=== PATIENT | male | born 1960 | race Caucasian/White ===

== ENCOUNTER → 2020-09-22 14:07 | Outpatient (BNVA) | payer OTHER, SELFPAY | PROVIDERS: PCP Family Medicine; Visit Provider Internal Medicine | DX: M79.89 Other specified soft tissue disorders (principal); M25.50 Pain in unspecified joint; Z79.899 Other long term (current) drug therapy; Z11.59 Encounter for screening for other viral diseases; R63.4 Abnormal weight loss; Z68.1 Body mass index [BMI] 19.9 or less, adult; D50.9 Iron deficiency anemia, unspecified; F17.210 Nicotine dependence, cigarettes, uncomplicated | CPT/HCPCS: 99204 ==

== ENCOUNTER 2020-09-22 15:44 | Outpatient (CLI) | payer OTHER, SELFPAY ==
--- NOTE | 2020-09-22 15:58 | XR_ITS ---
WS: [id number] Exam: XR sacroiliac jts m 3V [id number] Date/Time of Exam: 09/22/2020 4:07 PM Reason For Exam: L40.9 - Psoriasis, unspecified No fracture or dislocation. Mild to moderate degenerative change of both SI joints. No sign of bone d estruction. The SI joints remain open. Operative fusion of the spine with hardware from L4 to S1. XR/XR sacroiliac jts m 3V [id number] IMPRESSION: 1. 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 No fracture or other significant finding. 2. Spinal fusion from L4 to S1 as noted above.
--- NOTE | 2020-09-22 15:58 | XR_ITS ---
WS: [id number] Exam: XR hand RT 2V [id number] Date/Time of Exam: 09/22/2020 4:07 PM Reason For Exam: M79.89 - Other specified soft tissue disorders No fracture or dislocation. Degenerative narrowing of the MP joints and IP joints. Multiple areas of bony erosion involving the phalanges and metacarpals. There is also periarticular demineralization of bone. Soft tissues are unremarkable. Additional subcortical cystic areas noted in the carpal bones. XR/XR hand RT 2V [id number] IMPRESSION: 1. Degenerative narrowing of the IP and MP joints with multiple areas of bony e rosion involving the metacarpals and phalanges as well as demineralization of b one at the IP joints and MP joints. Considerations would include rheumatoid art hritis or psoriatic arthritis. Gouty arthritis unlikely. 2. No acute bony injury.
--- NOTE | 2020-09-22 15:58 | XR_ITS ---
WS: [id number] Exam: XR hand LT 2V [id number] Date/Time of Exam: 09/22/2020 4:07 PM Reason For Exam: M79.89 - Other specified soft tissue disorders Exam: XR hand LT 2V [id number] Date/Time of Exam: 09/22/2020 4:07 PM Reason For Exam: M79.89 - Other specified soft tissue disorders No fracture or dislocation noted. Mild degenerative changes noted in the IP joints and MP joints. Sev eral small subcortical cysts and areas of the bony erosion are noted in the phalanges however not as pronounced as noted involving the right hand. Normal soft tissues. XR/XR hand LT 2V [id number] IMPRESSION: 1. Mild degenerative changes with several tiny subcortical cysts and areas of b shelly erosion in the phalanges. These changes are not as pronounced as identified within the right hand. 2. No acute bony injury noted.
--- NOTE | 2020-09-22 15:58 | XR_ITS ---
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 The lungs are hyperinflated and clear. Normal cardiomediastinal structures and bony elements. No pleu ral effusions. Mild bilateral apical pleural thickening. XR/XR chest 2V* [id number] IMPRESSION: 1. Pulmonary hyperinflation. No acute process.
[2020-09-22 17:04] LABS: Basophils # 0.1 10^3/uL (0.0-0.1); Basophils % 0.7 %; Eosinophils # 0.1 10^3/uL (0.0-0.8); Eosinophils % 0.6 %; Hematocrit 57.7 % (42.0-52.0); Hemoglobin 19.1 g/dL (11.7-16.6); Lymphocytes # 2.8 10^3/uL (0.8-4.8); Lymphocytes % 32.2 %; Mean Corpuscular HGB Conc 33.1 g/dL (30.0-36.0); Mean Corpuscular Hemoglobin 30.8 pg (28.0-34.0); Mean Corpuscular Volume 93.1 fL (80-94); Mean Platelet Volume 9.6 fL (7.4-10.4); Monocytes # 0.6 10^3/uL (0.2-0.9); Monocytes % 7.3 %; Neutrophils # 5.17 10^3/uL (1.8-7.7); Neutrophils % 58.9 %; Nucleated Red Blood Cells % 0 %; Platelet Count 325 10^3/cmm (130-400); Red Cell Distribution Width 13.8 % (12.1-15.1); White Blood Count 8.8 10^3/uL (4.0-10.0)
[2020-09-22 17:47] LABS: Alanine Aminotransferase 10 U/L (0-41); Albumin Level 3.9 g/dL (3.5-5.2); Alkaline Phosphatase 75 IU/L (40-130); Aspartate Amino Transferase 12 U/L (0-40); Blood Urea Nitrogen 4 mg/dL (6-20); C Reactive Protein 2.5 mg/L (0.0-4.9); Calcium 9.6 mg/dL (8.5-10.5); Carbon Dioxide 31 mmol/L (22-29); Chloride 100 mmol/L (98-107); Creatine Phosphokinase 41 U/L (39-308); Globulin 2.9 g/dL (1.3-4.6); Glomerular Filtration Rate 115.4 mL/min (90-130); Glucose 96 mg/dL (65-115); Hepatitis B Core AB, Total Non-Reactive (Nonreactive); Hepatitis B Surface Antigen Non-Reactive (Nonreactive); Hepatitis C Virus Antibody Non-Reactive (Nonreactive); Magnesium 2.2 mg/dL (1.7-2.3); Osmolality Calculated 285 mOsm/kg (285-295); Phosphorus 3.4 mg/dL (2.5-4.5); Sodium 139 mmol/L (136-145); Total Bilirubin 0.4 mg/dL (0.15-1.2); Total Protein 6.8 g/dL (6.6-8.7)
[2020-09-22 17:55] LABS: Erythrocyte Sedimentation Rate 2 mm/hr (0-10)
[2020-09-22 18:38] LABS: 25 Hydroxy Vitamin D 14 ng/mL (30-100); Ferritin 277 ng/mL (30-400); Iron 90 ug/dL (59-158); Thyroid Stimulating Hormone 0.99 uIU/mL (0.27-4.20)
[2020-09-26 11:57] LABS: Cyclic Citrullinated Peptide <16 UNITS
[2020-09-26 14:33] LABS: COMPLEMENT COMPONENT C3C 107 mg/dL (82-185); COMPLEMENT COMPONENT C4C 48 mg/dL (15-53)
[2020-09-26 15:03] LABS: COMPLEMENT, TOTAL (CH50) 48 U/mL (31-60)
[2020-09-27 13:58] LABS: CENTROMERE B ANTIBODY <1.0 NEG AI (<1.0 NEG); JO-1 ANTIBODY <1.0 NEG AI (<1.0 NEG); RNP ANTIBODY <1.0 NEG AI (<1.0 NEG); SCL-70 ANTIBODY <1.0 NEG AI (<1.0 NEG); SJOGREN'S ANTIBODY (SS-A) <1.0 NEG AI (<1.0 NEG); SM ANTIBODY <1.0 NEG AI (<1.0 NEG); SS-B <1.0 NEG AI (<1.0 NEG)
[2020-09-27 14:28] LABS: ANA SCREEN, IFA NEGATIVE (NEGATIVE)
[2020-09-27 15:03] LABS: THYROID PEROXIDASE ANTIBODIES 1 IU/mL (<9)
[2020-09-28 17:39] LABS: HLA-B27 NEGATIVE (NEGATIVE)
[2020-09-29 01:14] LABS: DNA AB (DS) CRITHIDIA,IFA NEGATIVE (NEGATIVE)
== END 2020-09-22 15:45 | disposition home or self-care (01) ==
PROVIDERS: PCP Family Medicine; Visit Provider Internal Medicine
DX: Z51.81 Encounter for therapeutic drug level monitoring (principal); Z79.899 Other long term (current) drug therapy; M79.89 Other specified soft tissue disorders; L40.9 Psoriasis, unspecified; D86.9 Sarcoidosis, unspecified; D50.9 Iron deficiency anemia, unspecified; M45.9 Ankylosing spondylitis of unspecified sites in spine; C61 Malignant neoplasm of prostate; M46.1 Sacroiliitis, not elsewhere classified; M43.27 Fusion of spine, lumbosacral region
CPT/HCPCS: 36415; 71046; 72202; 73120; 80053; 82306; 82550; 82728; 83540; 83735; 84100; 84153; 84443; 85025; 85651; 86140; 86431; 86704; 86803; 86812; 87340

== ENCOUNTER → 2020-11-01 16:28 | Outpatient (BNVA) | payer OTHER, SELFPAY | PROVIDERS: PCP Family Medicine; Visit Provider Internal Medicine | DX: Z01.812 Encounter for preprocedural laboratory examination (principal); Z12.11 Encounter for screening for malignant neoplasm of colon; Z20.822 Contact with and (suspected) exposure to COVID-19 | CPT/HCPCS: 87635 ==

== ENCOUNTER 2020-11-07 07:47 | Day surgery (SDC) | payer OTHER, SELFPAY ==
[2020-11-03 13:07] VITALS: BMI 17.2
--- NOTE | 2020-11-07 08:13 | ANES.PREANE2 ---
Pre-Anesthetic Assessment Pre-Anesthetic Assessment: Height/Weight: Height 1.75 m Weight 53.07 kg Preop Diagnosis: t Proposed Procedure: Operation Date: 11/07/20 09:15 Proposed Procedures p Colonoscopy 30045 z12.11(Not Applicable) - Carlos Mata MD Was Beta Angelika taken within 24 hours: N/A Was Clonidine taken within 24 hours: N/A Social: Social History: Alcohol (Daily beer) and Tobacco Exam: Pre-Anes Outpt Exam: alert, oriented x 3 and regular rate & rhythm Airway: Submandibular: WNL Cervical ROM: WNL MP: 2 Dentition: False Pulmonary: Pulmonary: COPD Musc/skel: Musc/skel: RA Anesthetic Plan: ASA status: 3 Anesthesia: MAC Risk of > 500 ml blood loss (7ml/kg in children): No PFSH Anesthesia PFSH: Social History Smoking and tobacco status: current every day smoker cigarettes Alcohol intake: current Alcohol intake frequency: few times a week Alcohol type: beer History of recent travel: No Data Anesthesia Cardiac Studies: No Data to Display
[2020-11-07 08:25] VITALS: BP 90/67; PULSE 84; RESP 16; TEMP 37.1; O2SAT 94
--- NOTE | 2020-11-07 08:41 | W.PM.OPSUD ---
Surgery/Procedure H&P Update DATE OF PROCEDURE: November 07, 2020 DATE H&P PERFORMED: 11/01/20 PREOP DIAGNOSIS: t PLANNED PROCEDURE: Operation Date: 11/07/20 09:15 Proposed Procedures p Colonoscopy 37003 z12.11(Not Applicable) - Carlos Mata MD
[2020-11-07] MEDS: sodium chloride 0.9% 1,000 ML 30 ML IV (08:44)
[2020-11-07 09:34] VITALS: BP 90/59; PULSE 75; RESP 10; TEMP 36.5; O2SAT 96
[2020-11-07 09:51] VITALS: BP 102/65; PULSE 77; RESP 12; O2SAT 100
--- NOTE | 2020-11-07 10:09 | ANE.PACU2 ---
Inpatient post-anesthesia follow up: Airway intact: Yes Vital signs: Temperature 97.7 F Pulse Rate 77 Respiratory Rate 12 Blood Pressure 102/65 Pulse Oximetry 100 Oxygen Delivery Me thod Room Air Oxygen Flow Rate Fraction of Inspir ed Oxygen Hydration adequate: Yes Nausea and vomiting: No Mental status: Baseline
--- NOTE | 2020-11-07 12:03 | ANE.PACU2 ---
Inpatient post-anesthesia follow up: Airway intact: Yes Vital signs: Temperature 97.7 F Pulse Rate 77 Respiratory Rate 12 Blood Pressure 102/65 Pulse Oximetry 100 Oxygen Delivery Me thod Room Air Oxygen Flow Rate Fraction of Inspir ed Oxygen Hydration adequate: Yes Nausea and vomiting: No Pain level: 1 Mental status: Baseline
== END 2020-11-07 10:10 | disposition home or self-care (01) ==
PROVIDERS: PCP Family Medicine; Visit Provider Internal Medicine
PROC: 0DJD8ZZ Inspection of Lower Intestinal Tract, Via Natural or Artificial Opening Endoscopic (ICD-10-PCS; CPT 45378; principal; 2020-11-07 09:15)
DX: Z12.11 Encounter for screening for malignant neoplasm of colon (principal); J44.9 Chronic obstructive pulmonary disease, unspecified; M06.9 Rheumatoid arthritis, unspecified; F17.210 Nicotine dependence, cigarettes, uncomplicated
CPT/HCPCS: 45378; 96360; J7030

== ENCOUNTER 2020-12-23 14:42 | Outpatient (CLI) | payer OTHER, SELFPAY ==
--- NOTE | 2020-12-23 15:00 | US_ITS ---
WS: [id number] ULTRASOUND SOFT TISSUES RIGHT hand. HISTORY: M67.49 - Ganglion, multiple sites COMPARISON: None available. TECHNIQUE: 2-D and color Doppler imaging is submitted. Small hypoechoic nodule at the base of the first finger measures 8 x 4 x 4 mm. Could potentially be a tiny ganglion. There is nothing specific about this nodule. There are no nodules identified at any o ther locations. US/US soft tissue/extremity 23048 IMPRESSION: No definite ganglion. Consider further evaluation by MRI.
== END 2020-12-23 14:43 | disposition home or self-care (01) ==
PROVIDERS: PCP Family Medicine; Visit Provider Internal Medicine
DX: M67.49 Ganglion, multiple sites (principal); M79.89 Other specified soft tissue disorders
CPT/HCPCS: 76882

== ENCOUNTER 2021-01-18 06:00 | Outpatient (RCR) | payer OTHER, SELFPAY | END 2021-01-23 23:59 | disposition home or self-care (01) | LOC: GOT 06:00 | PROVIDERS: PCP Family Medicine; Referring Provider Physical Medicine & Rehabilitation; Visit Provider Physical Medicine & Rehabilitation | DX: M79.641 Pain in right hand (principal); R20.0 Anesthesia of skin; M25.641 Stiffness of right hand, not elsewhere classified; M25.511 Pain in right shoulder; R29.898 Other symptoms and signs involving the musculoskeletal system; M25.611 Stiffness of right shoulder, not elsewhere classified | CPT/HCPCS: 97140; 97166 ==

== ENCOUNTER 2021-05-16 06:00 | Outpatient (RCR) | payer OTHER, SELFPAY | END 2021-05-25 23:59 | disposition home or self-care (01) | LOC: GOT 06:00 | PROVIDERS: PCP Family Medicine; Referring Provider Orthopaedic Surgery; Visit Provider Orthopaedic Surgery | DX: M79.641 Pain in right hand (principal) | CPT/HCPCS: 97110; 97140; 97166; 97760 ==

== ENCOUNTER 2021-05-26 06:00 | Outpatient (RCR) | payer OTHER, SELFPAY | END 2021-06-25 23:59 | disposition home or self-care (01) | LOC: GOT 06:00 | PROVIDERS: PCP Family Medicine; Referring Provider Orthopaedic Surgery; Visit Provider Orthopaedic Surgery | DX: M24.541 Contracture, right hand (principal) | CPT/HCPCS: 97110; 97140 ==

== ENCOUNTER 2021-06-26 06:00 | Outpatient (RCR) | payer OTHER, SELFPAY | END 2021-07-25 23:59 | disposition home or self-care (01) | LOC: GOT 06:00 | PROVIDERS: PCP Family Medicine; Referring Provider Orthopaedic Surgery; Visit Provider Orthopaedic Surgery | DX: G56.01 Carpal tunnel syndrome, right upper limb (principal); M79.641 Pain in right hand; M24.541 Contracture, right hand | CPT/HCPCS: 97110; 97140; 97168 ==

== ENCOUNTER 2021-07-26 06:00 | Outpatient (RCR) | payer OTHER, SELFPAY | END 2021-08-08 23:59 | disposition home or self-care (01) | LOC: GOT 06:00 | PROVIDERS: PCP Family Medicine; Referring Provider Orthopaedic Surgery; Visit Provider Orthopaedic Surgery | DX: G56.01 Carpal tunnel syndrome, right upper limb (principal); M25.541 Pain in joints of right hand; M79.641 Pain in right hand | CPT/HCPCS: 97018; 97110; 97140 ==

== ENCOUNTER 2021-08-30 02:46 | Outpatient (RCR) | payer OTHER, SELFPAY | END 2021-09-25 23:59 | disposition home or self-care (01) | LOC: GPT 02:46 | PROVIDERS: PCP Family Medicine; Visit Provider Physical Medicine & Rehabilitation | DX: M54.2 Cervicalgia (principal); R20.0 Anesthesia of skin; M25.611 Stiffness of right shoulder, not elsewhere classified | CPT/HCPCS: 97110; 97140; 97162 ==

== ENCOUNTER 2021-09-26 06:00 | Outpatient (RCR) | payer OTHER, SELFPAY | END 2021-10-23 23:59 | disposition home or self-care (01) | LOC: GPT 06:00 | PROVIDERS: PCP Family Medicine; Visit Provider Physical Medicine & Rehabilitation | DX: M25.611 Stiffness of right shoulder, not elsewhere classified (principal) | CPT/HCPCS: 97110; 97140; G0283 ==

== ENCOUNTER 2021-11-07 06:00 | Outpatient (RCR) | payer OTHER, SELFPAY | END 2021-11-23 23:59 | disposition home or self-care (01) | LOC: GOT 06:00 | PROVIDERS: PCP Family Medicine; Referring Provider Orthopaedic Surgery; Visit Provider Orthopaedic Surgery | DX: M24.541 Contracture, right hand (principal); Z98.890 Other specified postprocedural states | CPT/HCPCS: 97110; 97140; 97166 ==

== ENCOUNTER → 2022-04-09 15:33 | Outpatient (BNVA) | payer OTHER, SELFPAY | PROVIDERS: PCP Family Medicine; Visit Provider Family Medicine | DX: S90.01XA Contusion of right ankle, initial encounter (principal); X58.XXXA Exposure to other specified factors, initial encounter | CPT/HCPCS: 73610 ==

== ENCOUNTER 2022-05-24 17:49 | Inpatient (IN) | payer OTHER, SELFPAY ==
[2022-05-24] VITALS (8 sets, daily range): BP systolic 99–104; BP diastolic 51–63; PULSE 63–75; RESP 15–24; TEMP 36.7–37.1; O2SAT 96–100
--- NOTE | 2022-05-24 18:10 | CTR_ITS ---
PROCEDURE INFORMATION: Exam: CT Abdomen And Pelvis With Contrast Exam date and time: 05/24/2022 7:13 PM Age: 61 years old Clinical indication: Abdominal pain; Other: Constipation; Additional info: Abd pain TECHNIQUE: Imaging protocol: Computed tomography of the abdomen and pelvis with contrast. Radiation optimization: All CT scans at this facility use at least one of these dose optimization techniques: automated exposure control; mA and/or kV adjustment per patient size (includes targeted exams where dose is matched to clinical indication); or iterative reconstruction. Contrast material: OMNIPAQUE 350; Contrast volume: 80 ml; Contrast route: INTRAVENOUS (IV); COMPARISON: CR XR sacroiliac jts m 3V [id number] 09/22/2020 4:28 PM RADIATION DOSE METRICS: Total DLP (mGy-cm): 377.92 FINDINGS: Lungs: The lung bases are clear. No effusion Liver: There is focal fatty infiltration along the falciform ligament. Gallbladder and bile ducts: No wall thickening, pericholecystic fluid or stones. Pancreas: 2.8 by 5.3 x 3 cm multilobulated fluid collection in the head of the pancreas resulting in pancreatic ductal dilation. Finding may be secondary to a pseudocyst if there is a history of pancreatitis. Evaluation with nonemergent outpatient contrast enhanced MRI of the abdomen is recommended. Spleen: Normal. No splenomegaly. Adrenal glands: Normal. No mass. Kidneys and ureters: 0.8 cm left renal cyst. Stomach and bowel: There are few loops of mildly prominent small bowel , nonspecific but may be seen with gastroenteritis. Mild amount of formed stool in the colon. Appendix: No evidence of appendicitis. Intraperitoneal space: Unremarkable. No free air. No significant fluid collection. Vasculature: Unremarkable. No abdominal aortic aneurysm. Lymph nodes: Unremarkable. No enlarged lymph nodes. Urinary bladder: Unremarkable as visualized. Reproductive: Unremarkable as visualized. Bones/joints: Intact posterior fusion hardware L4-S1. The anterior fusion hardware at L4-L5 and L5-S1. Soft tissues: Unremarkable. CT/CT abdomen pelvis w con* [id number] IMPRESSION: 1. 2.8 by 5.3 x 3 cm multilobulated fluid collection in the head of the pancreas resulting in pancreatic ductal dilation. Finding may be secondary to a pseudocyst, if there is a history of pancreatitis. Evaluation with nonemergent outpatient contrast enhanced MRI of the abdomen is recommended. 2. There are few loops of mildly prominent small bowel , nonspecific but may be seen with gastroenteritis. 3. Mild constipation. COMMENTS: Consistent with the [employer]'s Incidental Findings Committee white paper (J Am Madison Radiol 2018): Any incidental renal lesion less than 1 cm or classified as too small to characterize, or any incidental cystic renal lesion characterized as simple-appearing, is likely benign. No follow-up imaging is recommended for these lesions per consensus recommendations based on imaging criteria.
--- NOTE | 2022-05-24 18:15 | W.ED.ABDPA2 ---
HPI - Abdominal Pain General: Chief Complaint: Abdominal Pain Stated Complaint: ABD Pain Time Seen by Provider: 05/24/22 17:51 Source: patient Mode of arrival: ambulatory Limitations: no limitations History of Present Illness: 61-year-old male states been having abdominal pain since morning. He states is diffuse cramping in nature along with some sharp pains radiate to his back states pain is currently a 7 out of 10 he thought he was constipated took MiraLAX he has had no improvement he has had nausea with no vomiting denies any fever denies any chest pain. Associated Symptoms: Reports nausea; Denies chills, dysuria and fever(s) Review of Systems Const: Denies: fever(s), chills, body aches or change in appetite Eyes: Denies: blurry vision or eye discomfort ENMT: Denies: throat pain or dental pain Card: Denies: chest pain Resp: Denies: dyspnea GI: Reports: abdominal pain and nausea : Denies: dysuria Musc: Denies: neck pain or back pain Skin/Breast: Denies: rash Neuro: Denies: headache(s) Psych: Denies: depression Tian/Lymph: Denies: easy bruising All/Imm: Denies: urticaria PFSH ED PFSH: Medical History (Updated 05/24/22 @ 18:16 by Mor Radford MD) Polycythemia Social History Smoking and tobacco status: current every day smoker cigarettes Alcohol intake: current Alcohol intake frequency: few times a week Alcohol type: beer History of recent travel: No Physical Exam Const: COMMON NORMALS: patient oriented x3 GENERAL APPEARANCE: ill appearing HENMT: COMMON NORMALS: normocephalic and atraumatic HEAD & SCALP: normocephalic and atraumatic Eye: COMMON NORMALS: Equal, round and reactive pupils present and EOMs intact bilaterally PUPIL: Yes Equal, round and reactive pupils present Neck/C-Spine: COMMON NORMALS: full ROM and supple Chest: COMMONS NORMALS: normal inspection of the chest and normal palpation of entire chest wall Resp: COMMON NORMALS: normal respiratory effort, No retractions, No use of accessory muscles and clear to auscultation bilaterally AUSCULTATION: clear to auscultation bilaterally Cardio: COMMON NORMALS: regular rate, regular rhythm and No murmurs present (Cardio) RATE: regular rate RHYTHM: regular rhythm GI: COMMON NORMALS: Normal to inspection, nondistended, normoactive bowel sounds present, Soft to palpation and no masses PALPATION: Yes Soft to palpation OTHER: diffuse tenderness Extremity: COMMON NORMALS: normal to inspection and full ROM Neuro: COMMON NORMALS: patient oriented x3, moves all extremities and no focal motor deficits Psych: COMMON NORMALS: mental status grossly normal, Normal thought process present and cooperative THOUGHT PROCESS: Normal thought process present Skin: COMMON NORMALS: no rashes or lesions noted and no wounds GENERAL SKIN EXAM: no rashes or lesions noted Course Vital Signs: Vital signs: Vital Signs Temperature 98.0 F 05/24/22 18:01 Pulse Rate 66 05/24/22 20:04 Respiratory Rate 18 05/24/22 20:04 Blood Pressure 100/51 05/24/22 20:04 Pulse Oximetry 99 05/24/22 20:04 Oxygen Delivery Me thod 05/24/22 19:31 MDM - Abdominal Pain Medical Decision Making Patient presents here with pancreatitis he does have pancreatitis on CT along with elevated lipase spoke to hospitalist Dr. Chaves who will admit. Lab Data : 05/24/22 18:19 05/24/22 18:19 Labs/Radiology: Radiology Impressions Abdomen/Pelvis CT 05/24/22 18:10 IMPRESSION: 1. 2.8 by 5.3 x 3 cm multilobulated fluid collection in the head of the pancreas resulting in pancreatic ductal dilation. Finding may be secondary to a pseudocyst, if there is a history of pancreatitis. Evaluation with nonemergent outpatient contrast enhanced MRI of the abdomen is recommended. 2. There are few loops of mildly prominent small bowel , nonspecific but may be seen with gastroenteritis. 3. Mild constipation. COMMENTS: Consistent with the [employer]'s Incidental Findings Committee white paper (J Am [employer] Radiol 2018): Any incidental renal lesion less than 1 cm or classified as too small to characterize, or any incidental cystic renal lesion characterized as simple-appearing, is likely benign. No follow-up imaging is recommended for these lesions per consensus recommendations based on imaging criteria. Laboratory Results WBC 14.7 10^3/uL (4.0-10.0) H 05/24/22 18:19 RBC 5.37 10^6/uL (4.1-5.3) H 05/24/22 18:19 Hgb 16.3 g/dL (11.7-16.6) 05/24/22 18:19 Hct 48.3 % (42.0-52.0) 05/24/22 18:19 MCV 89.9 fl (80-94) 05/24/22 18:19 MCH 30.4 pg (28.0-34.0) 05/24/22 18:19 MCHC 33.7 g/dL (30.0-36.0) 05/24/22 18:19 RDW 14.6 % (12.1-15.1) 05/24/22 18:19 Plt Count 355 10^3/cmm (130-400) 05/24/22 18:19 MPV 9.8 fL (7.4-10.4) 05/24/22 18:19 Neut % (Auto) 77.1 % 05/24/22 18:19 Lymph % (Auto) 14.2 % 05/24/22 18:19 [place] % (Auto) 7.8 % 05/24/22 18:19 Eos % (Auto) 0.3 % 05/24/22 18:19 Baso % (Auto) 0.3 % 05/24/22 18:19 Neut # (Auto) 11.32 10^3/uL (1.8-7.7) H 05/24/22 18:19 Lymph # (Auto) 2.1 10^3/uL (0.8-4.8) 05/24/22 18:19 [place] # (Auto) 1.1 10^3/uL (0.2-0.9) H 05/24/22 18:19 Eos # (Auto) 0.0 10^3/uL (0.0-0.8) 05/24/22 18:19 Baso # (Auto) 0.1 10^3/uL (0.0-0.1) 05/24/22 18:19 Nucleated RBC % (auto) 0 % 05/24/22 18:19 Nucleated RBCs # 0.0 /100WBC 05/24/22 18:19 Sodium 135 mmol/L (136-145) L 05/24/22 18:19 Potassium 3.8 mmol/L (3.5-5.1) 05/24/22 18:19 Chloride 101 mmol/L (98-107) 05/24/22 18:19 Carbon Dioxide 24 mmol/L (22-29) 05/24/22 18:19 Anion Gap 13.8 (5-19) 05/24/22 18:19 BUN 6 mg/dL (8-23) L 05/24/22 18:19 Creatinine 0.7 mg/dL (0.7-1.2) 05/24/22 18:19 GFR Calculation 115.0 mL/min (90-130) 05/24/22 18:19 Glucose 93 mg/dL (65-115) 05/24/22 18:19 Calculated Osmolality 277 mOsm/kg (285-295) L 05/24/22 18:19 Calcium 9.3 mg/dL (8.5-10.5) 05/24/22 18:19 Total Bilirubin 0.7 mg/dL (0.15-1.2) 05/24/22 18:19 AST 14 U/L (0-40) 05/24/22 18:19 ALT 7 U/L (0-41) 05/24/22 18:19 Alkaline Phosphatase 61 U/L (40-130) 05/24/22 18:19 Total Protein 6.4 g/dL (6.6-8.7) L 05/24/22 18:19 Albumin 3.5 g/dL (3.5-5.2) 05/24/22 18:19 Globulin 2.9 g/dL (1.3-4.6) 05/24/22 18:19 Lipase 6445 U/L (13-60) H 05/24/22 18:19 Urine Color Yellow (Yellow) 05/24/22 18:56 Urine Appearance Clear (CLEAR) 05/24/22 18:56 Urine pH 8.5 (5-7) A 05/24/22 18:56 Ur Specific [place] 1.015 (1.005-1.030) 05/24/22 18:56 Urine Protein Negative 05/24/22 18:56 Urine Glucose (UA) Negative (Normal) 05/24/22 18:56 Urine Ketones Trace (Negative) A 05/24/22 18:56 Urine Blood Negative (Negative) 05/24/22 18:56 Urine Nitrate Negative 05/24/22 18:56 Urine Bilirubin Negative (Negative) 05/24/22 18:56 Urine Urobilinogen 0.2 mg/dL (Negative) 05/24/22 18:56 Ur Leukocyte Esterase Negative (Negative) 05/24/22 18:56 SARS-CoV-2 Ag (Rapid) Negative (Negative) 05/24/22 18:45 Discharge Plan Discharge Condition: Stable Prescriptions: No Action ibuprofen [Advil] 200 mg tablet 200 mg PO Q8H PRN (Reason: Pain) meloxicam 15 mg tablet 15 mg PO DAILY Qty: 20 3RF amoxicillin 500 mg capsule 500 mg PO TID Qty: 30 0RF Referrals: Darrin Barker, [Primary Care Provider] - Coding Level of Care Code ED Quantitative Analyst for Chg Fwd Exam Comprehensive
[2022-05-24] MEDS: ondansetron 2 mg/ML SDV 2 mL 4 MG IVP (18:27)
[2022-05-24] MEDS: HYDROmorphone 1 mg/mL INJ 1 mL 0.5 MG IVP (18:30)
[2022-05-24 18:39] LABS: Basophils # 0.1 10^3/uL (0.0-0.1); Basophils % 0.3 %; Eosinophils % 0.3 %; Hematocrit 48.3 % (42.0-52.0); Hemoglobin 16.3 g/dL (11.7-16.6); Lymphocytes # 2.1 10^3/uL (0.8-4.8); Lymphocytes % 14.2 %; Mean Corpuscular HGB Conc 33.7 g/dL (30.0-36.0); Mean Corpuscular Hemoglobin 30.4 pg (28.0-34.0); Mean Corpuscular Volume 89.9 fl (80-94); Mean Platelet Volume 9.8 fL (7.4-10.4); Monocytes # 1.1 10^3/uL (0.2-0.9); Monocytes % 7.8 %; Neutrophils # 11.32 10^3/uL (1.8-7.7); Neutrophils % 77.1 %; Nucleated Red Blood Cells % 0 %; Platelet Count 355 10^3/cmm (130-400); Red Blood Count 5.37 10^6/uL (4.1-5.3); Red Cell Distribution Width 14.6 % (12.1-15.1); White Blood Count 14.7 10^3/uL (4.0-10.0)
--- NOTE | 2022-05-24 18:49 | PC.NURSE ---
c/o RUQ and RLQ abdominal pain, nausea, and a fever that started this morning. Reports pain is constant but the severity changes. Fever as high as 100.0. Denies any pain medications or antipyretics today. Reports he was started on Naproxen this Saturday after an ankle injury. Exposed to someone with Covid yesterday. Pt laying in bed, dry heaving into trash can. appears uncomfortable. Lung sounds clear bilat. Bowel sounds present x4. abdomen soft and tender to RUQ and RLQ with palpation.
--- NOTE | 2022-05-24 18:58 | PC.NURSE ---
report given to SHANNEN Abdi
[2022-05-24 19:00] LABS: Alanine Aminotransferase 7 U/L (0-41); Albumin Level 3.5 g/dL (3.5-5.2); Alkaline Phosphatase 61 U/L (40-130); Aspartate Amino Transferase 14 U/L (0-40); Blood Urea Nitrogen 6 mg/dL (8-23); Calcium 9.3 mg/dL (8.5-10.5); Carbon Dioxide 24 mmol/L (22-29); Globulin 2.9 g/dL (1.3-4.6); Glucose 93 mg/dL (65-115); Total Bilirubin 0.7 mg/dL (0.15-1.2); Total Protein 6.4 g/dL (6.6-8.7)
[2022-05-24 19:01] LABS: Potassium 3.8 mmol/L (3.5-5.1)
[2022-05-24 19:03] LABS: Add Urine Microscopic? NO
[2022-05-24 19:05] LABS: Bilirubin Urine Negative (Negative); Blood Urine Negative (Negative); Glucose Urine UA Negative (Normal); Ketones Urine Trace (Negative); Leukocyte Esterase Urine Negative (Negative); Nitrate Urine Negative; Protein Urine Negative; Specific Gravity, Urine 1.015 (1.005-1.030); Urine Appearance Clear (CLEAR); Urine Color Yellow (Yellow); Urobilinogen Urine 0.2 mg/dL (Negative)
[2022-05-24 19:12] LABS: pH Urine 8.5 (5-7)
[2022-05-24] MEDS: iohexol 350 mg/mL 100 mL Btl IV (19:13)
[2022-05-24 19:14] LABS: Charge for UA Resulting for Rev
[2022-05-24 19:25] LABS: SARS Covid-2 Antigen Negative (Negative)
[2022-05-24 19:53] LABS: Anion Gap 13.8 (5-19); Chloride 101 mmol/L (98-107); Osmolality Calculated 277 mOsm/kg (285-295); Sodium 135 mmol/L (136-145)
[2022-05-24 20:14] LABS: Lipase 6445 U/L (13-60)
--- NOTE | 2022-05-24 20:51 | P.HP_ITS ---
Providers/Chief Complaint Admitting Physician: Raj Chaves MD Primary Care Provider: Darrin Barker DO Chief Complaint: ABD Pain History of Present Illness Jose Mendoza is a 61 year old male with no significant past medical history was brought in with chief complaint of abdominal pain nausea, started today, describes the pain as sharp, predominantly located in Epigastric and left upper and lower abdominal quadrant, with occasional radiation to the back. He also reports constipation for which he took MiraLAX with no improvement. He also reports subjective fever at home, denied any vomiting , chest pain , shortness of breath. Patient reports drinking beer at home around 2-4 beers a day, as well as he also takes whiskey.Denies any IV drug use.Patient also reports history of smoking. Upon arrival in the ER he was worked up for above-mentioned complaint. Pertinent imaging studies; CT abdomen pelvis w con: 2.8 by 5.3 x 3 cm multilobulated fluid collection in the head of the pancreas resulting in pancreatic ductal dilation. Finding may be secondary to a pseudocyst, if there is a history of pancreatitis. Pertinent labs: WBC 14.7 , H&H: 16/48 , PLT : 355 , serum sodium 135 serum potassium 3.8, BUN serum creatinine 6/0.7 , AST ALT alk phos normal: Lipase 6445 Rapid COVID-negative. Review of Systems General: Reports: 10 or more systems reviewed and unremarkable except in HPI and below Const: Denies: fever(s), chills, body aches, change in appetite or diaphoresis Card: Denies: palpitations, edema, swelling of feet/ankles, dyspnea on exertion, orthopnea or leg pain with exertion Resp: Denies: dyspnea, productive cough, wheezing or pain on inspiration GI: Reports: abdominal pain and nausea; Denies: vomiting, diarrhea or constipation : Denies: flank pain or difficulty urinating Musc: Reports: back pain; Denies: extremity pain or extremity swelling Neuro: Denies: headache(s), difficulty walking or confusion Medications/Allergies Home Medications Medication Instructions Recorded Confirmed Last Taken Type ibuprofen 200 mg tablet (Advil) 200 mg PO Q8H PRN Pain 08/30/20 05/09/22 11/05/20 History meloxicam 15 mg tablet 15 mg PO DAILY #20 tabs 04/09/22 05/09/22 Unknown Rx amoxicillin 500 mg capsule 500 mg PO TID #30 caps 05/02/22 05/09/22 Unknown Rx Allergies Allergy/AdvReac Type Severity Reaction Status Date / Time codeine Allergy ADR-Nausea Verified 05/24/22 18:05 PFSH Acute PFSH: Medical History (Updated 05/24/22 @ 20:55 by Raj Chaves MD) Polycythemia Social History Smoking and tobacco status: current every day smoker cigarettes Alcohol intake: current Alcohol intake frequency: few times a week Alcohol type: beer History of recent travel: No Vitals/I&O/Wt Last Vital Signs Temp 98.0 F 05/24/22 18:01 Pulse 66 05/24/22 20:04 Resp 18 05/24/22 20:04 BP 100/51 05/24/22 20:04 Pulse Ox 99 05/24/22 20:04 O2 Del Method 05/24/22 19:31 Physical Exam Const: COMMON NORMALS: patient oriented x3 Resp: COMMON NORMALS: clear to auscultation bilaterally AUSCULTATION: clear to auscultation bilaterally Cardio: COMMON NORMALS: regular rate, regular rhythm, S1 normal heart sound present, S2 normal heart sound present, No gallops present (Cardio), No murmurs present (Cardio), No rub (Cardio) and Peripheral pulses 2+ throughout RATE: regular rate RHYTHM: regular rhythm HEART SOUNDS: S1 normal heart sound present and S2 normal heart sound present PERIPHERAL PULSES: Peripheral pulses 2+ throughout GI: AUSCULTATION: Yes normoactive bowel sounds RECTAL EXAM: Yes deferred OTHER: Epigastric and left upper quadrant tenderness present, minimal guarding, no rebound tenderness. Extremity: COMMON NORMALS: no clubbing, cyanosis or edema and no pedal edema Neuro: COMMON NORMALS: patient oriented x3 Data : 05/25/22 04:35 05/24/22 18:19 A&P Assessment and plan (1) Acute pancreatitis: (2) Leukocytosis: Plan 61 year old male with no significant past medical history was brought in with chief complaint of abdominal pain nausea, started today, describes the pain as sharp, predominantly located in Epigastric and left upper and lower abdominal quadrant, with occasional radiation to the back. He also reports constipation for which he took MiraLAX with no improvement. Assessment: Acute pancreatitis: Possibly secondary to alcohol use and smoking, he is not on any offending medication at home,Gallbladder and bile ducts: No wall thickening, pericholecystic fluid or stones. Pancreatic pseudocyst Plan: N.p.o. Pain control IV hydration Follow lipid panel Follow HbA1c Will initiate oral intake once he is able to take p.o. currently complaining of significant pain with p.o. intake. Patient will need interval abdominal imaging study, for follow-up of pancreatic lesion. Possibly contrast enhanced MRI of the abdomen. CODE STATUS: Full code DVT prophylaxis: On Lovenox Attestations Medical Necessity Statement*: Patient is to be in hospital management of acute pancreatitis. Anticipated length of stay greater than 2 midnights. Time Spent in Patient Care: Greater than 35 minutes (>than 50% of time spent in counselling and/or direct pt care on unit) . Coding Level of Care Code Acute [employer] Travel Counselor for [facility] Fwd Exam Detailed Diagnoses Acute pancreatitis K85.90 Leukocytosis D72.829
[2022-05-24] MEDS: morphine 4 mg/mL SDV 1 mL 2 MG IVP (22:31)
[2022-05-24] MEDS: enoxaparin 40 mg/0.4 mL Syringe SUBCUT (22:32)
[2022-05-24] MEDS: sodium chloride 0.9% 1,000 ML 100 ML IV (22:33)
[2022-05-25] VITALS (9 sets, daily range): BP systolic 91–106; BP diastolic 55–69; PULSE 61–95; RESP 15–18; TEMP 36.4–37; O2SAT 94–97; BMI 17.2
[2022-05-25] MEDS: morphine 4 mg/mL SDV 1 mL 2 MG IVP ×2 (04:47→21:28)
[2022-05-25 05:11] LABS: Basophils % 0.2 %; Eosinophils % 0.3 %; Hematocrit 45.2 % (42.0-52.0); Hemoglobin 14.8 g/dL (11.7-16.6); Lymphocytes # 1.9 10^3/uL (0.8-4.8); Lymphocytes % 16.5 %; Mean Corpuscular HGB Conc 32.7 g/dL (30.0-36.0); Mean Corpuscular Hemoglobin 29.6 pg (28.0-34.0); Mean Corpuscular Volume 90.4 fl (80-94); Monocytes % 8.4 %; Neutrophils # 8.71 10^3/uL (1.8-7.7); Neutrophils % 74.3 %; Nucleated Red Blood Cells % 0 %; Platelet Count 324 10^3/cmm (130-400); Red Cell Distribution Width 14.6 % (12.1-15.1); White Blood Count 11.7 10^3/uL (4.0-10.0)
[2022-05-25 05:31] LABS: Estmated Average Glucose 100; Hemoglobin A1C 5.1 % (4.0-6.0)
[2022-05-25 05:39] LABS: Chol HDL Ratio 2.37 mg/dL (1.0-5.00); Cholesterol 102 mg/dL (0-200); HDL Cholesterol 43 mg/dL (60-100); LDL Cholesterol Calculated 40 mg/dL (50-129); LDL HDL Ratio 0.93 RATIO (0.00-3.22); Triglycerides 94 mg/dL (0-150)
[2022-05-25 05:40] LABS: Alanine Aminotransferase 6 U/L (0-41); Albumin Level 3.3 g/dL (3.5-5.2); Alkaline Phosphatase 55 U/L (40-130); Anion Gap 12.7 (5-19); Aspartate Amino Transferase 9 U/L (0-40); Blood Urea Nitrogen 5 mg/dL (8-23); Calcium 8.6 mg/dL (8.5-10.5); Carbon Dioxide 23 mmol/L (22-29); Chloride 104 mmol/L (98-107); Globulin 2.3 g/dL (1.3-4.6); Glomerular Filtration Rate 137.4 mL/min (90-130); Glucose 88 mg/dL (65-115); Osmolality Calculated 279 mOsm/kg (285-295); Phosphorus 2.9 mg/dL (2.5-4.5); Potassium 3.7 mmol/L (3.5-5.1); Sodium 136 mmol/L (136-145); Total Bilirubin 0.8 mg/dL (0.15-1.2); Total Protein 5.6 g/dL (6.6-8.7)
[2022-05-25] MEDS: acetaminophen 325 mg Tablet 650 MG PO (11:26)
--- NOTE | 2022-05-25 11:42 | PC.CHAP ---
Pastoral Care Encounter/Spiritual Assessment Type of Contact [] Declined vibrating screen operator visit [] Patient/Family/Request visit [] Outpatient visit [] Follow-up visit [] Physician referral [] Code/Alert [x] Routine visit [] Staff referral [] Actively dying [] Patient sleeping [] Family support [] [] Out of room [] Palliative care [] [] Receiving care in room [] Pre-surgical visit [] Trauma [] Long length of stay [] ICU visit [] Other: Relational/Emotional Strength [x] Patient feels connected with others/family/visitors/staff [] Distress [] Loneliness/isolation [] Abandonment Spirituality of Patient [x] Person of Summer [] Attends Jew of their Summer [x] Believes in Prayer [] Reads Bible or Worship materials [] There are Spiritual issues to be addressed Quad Stayer Interventions [x] Prayer [x] Active listening [x] Non-anxious presence [] Spiritual/emotional support [] Crisis/trauma care [] Spiritual counseling [] Bereavement support [] Provided bereavement packet [] Provided Bible/devotional materials [] Provided toy/stuffed animal, coloring book to patient or family member [] Provided Communion [] Anointing/[place] [] Salvation [x] Completed spiritual assessment [] Other: Impact on Illness or Injury [] Angry [] Fearful [] Anxious [] Often cries [] Exhaustion [] Unable to work [] Unable to attend voodoo [] Unable to walk/stand [] Unable to read [] Unable to drive [] Unable to eat/drink [] Unable to sleep [] Unable to be with family [] Patient intubated [] Other: Summary Time spent with patient 10 min
--- NOTE | 2022-05-25 14:20 | P.PN_ITS ---
Subjective Subjective: Seen this AM. Patient states he still has a lot of pain. But tender to palpation. He feels he could possibly try to have some mashed potatoes but unsure if it would hurt. He also states that he has a right ankle wound for which he is following up with wound care clinic and had an appointment there today at 11. He states he is going to ask someone from home to bring in his ointment that he has been applying on the area. He has seen them twice in the past. He says he does drink alcohol but only socially Denies nausea vomiting at this time. Vitals/I&O/Wt Last Vital Signs Temp 97.5 F L 05/25/22 11:25 Pulse 61 05/25/22 11:25 Resp 16 05/25/22 11:25 BP 96/62 05/25/22 11:25 Pulse Ox 94 05/25/22 11:25 O2 Del Method 05/25/22 11:25 05/24/22 05/25/22 05/25/22 22:59 06:59 14:59 Intake Total 978.333 / 978.333 Balance 978.333 / 978.333 Weight last 48 hrs Weight 52.617 kg Physical Exam Const: COMMON NORMALS: patient oriented x3 Resp: COMMON NORMALS: clear to auscultation bilaterally AUSCULTATION: clear to auscultation bilaterally Cardio: COMMON NORMALS: regular rate, regular rhythm, S1 normal heart sound present, S2 normal heart sound present, No gallops present (Cardio), No murmurs present (Cardio), No rub (Cardio) and Peripheral pulses 2+ throughout RATE: regular rate RHYTHM: regular rhythm HEART SOUNDS: S1 normal heart sound pr esent and S2 normal heart sound present PERIPHERAL PULSES: Peripheral pulses 2+ throughout GI: AUSCULTATION: Yes normoactive bowel sounds RECTAL EXAM: Yes deferred OTHER: Epigastric and left upper quadrant tenderness present, minimal guarding, no rebound tenderness. Extremity: COMMON NORMALS: no clubbing, cyanosis or edema and no pedal edema Neuro: COMMON NORMALS: patient oriented x3 Data : 05/25/22 04:35 05/25/22 04:35 A&P Assessment and plan (1) Acute pancreatitis: (2) Leukocytosis: Plan 61 year old male with no significant past medical history was brought in with chief complaint of abdominal pain nausea, started today, describes the pain as sharp, predominantly located in Epigastric and left upper and lower abdominal quadrant, with occasional radiation to the back. He also reports constipation for which he took MiraLAX with no improvement. Assessment: Acute pancreatitis: Possibly secondary to alcohol use and smoking, he is not on any offending medication at home,Gallbladder and bile ducts: No wall thickening, pericholecystic fluid or stones. Pancreatic pseudocyst Plan: N.p.o. Pain control IV hydration. Increase normal saline to 150 cc/h Follow lipid panel Follow HbA1c Will initiate oral intake once he is able to take p.o. currently complaining of significant pain with p.o. intake. Patient will need interval abdominal imaging study, for follow-up of pancreatic lesion. Possibly contrast enhanced MRI of the abdomen. CODE STATUS: Full code DVT prophylaxis: On Lovenox Attestations Medical Necessity Statement*: Patient is to be in hospital management of acute pancreatitis. Anticipated length of stay greater than 2 midnights. Time Spent in Patient Care: Greater than 35 minutes (>than 50% of time spent in counselling and/or direct pt care on unit) . Coding Level of Care Code Acute Turbo Operator for Lillian Banuelos Diagnoses Acute pancreatitis K85.90 Leukocytosis D72.829
[2022-05-25] MEDS: sodium chloride 0.9% 1,000 ML 150 ML IV (17:20)
--- NOTE | 2022-05-25 19:04 | PC.NURSE ---
Bedside report given to Madeleine pineda RN at this time
[2022-05-25] MEDS: enoxaparin 40 mg/0.4 mL Syringe SUBCUT (21:27)
[2022-05-26] VITALS (8 sets, daily range): BP systolic 95–119; BP diastolic 54–70; PULSE 57–76; RESP 16–18; TEMP 36.6–37; O2SAT 97–98
[2022-05-26] MEDS: morphine 4 mg/mL SDV 1 mL 2 MG IVP ×2 (03:36→10:03)
[2022-05-26] MEDS: sodium chloride 0.9% 1,000 ML 150 ML IV (03:41)
[2022-05-26 05:02] LABS: Basophils % 0.2 %; Eosinophils % 0.1 %; Hematocrit 44.6 % (42.0-52.0); Hemoglobin 14.4 g/dL (11.7-16.6); Lymphocytes # 1.6 10^3/uL (0.8-4.8); Mean Corpuscular HGB Conc 32.3 g/dL (30.0-36.0); Mean Corpuscular Hemoglobin 30.2 pg (28.0-34.0); Mean Corpuscular Volume 93.5 fl (80-94); Monocytes % 7.6 %; Neutrophils # 10.83 10^3/uL (1.8-7.7); Neutrophils % 79.7 %; Nucleated Red Blood Cells % 0 %; Platelet Count 279 10^3/cmm (130-400); Red Blood Count 4.77 10^6/uL (4.1-5.3); Red Cell Distribution Width 14.8 % (12.1-15.1); White Blood Count 13.6 10^3/uL (4.0-10.0)
[2022-05-26 05:23] LABS: Alanine Aminotransferase < 5 U/L (0-41); Albumin Level 3.1 g/dL (3.5-5.2); Alkaline Phosphatase 54 U/L (40-130); Anion Gap 17.9 (5-19); Aspartate Amino Transferase 9 U/L (0-40); Blood Urea Nitrogen 6 mg/dL (8-23); Calcium 8.4 mg/dL (8.5-10.5); Carbon Dioxide 19 mmol/L (22-29); Chloride 104 mmol/L (98-107); Globulin 2.6 g/dL (1.3-4.6); Glucose 67 mg/dL (65-115); Osmolality Calculated 280 mOsm/kg (285-295); Potassium 3.9 mmol/L (3.5-5.1); Sodium 137 mmol/L (136-145); Total Bilirubin 0.8 mg/dL (0.15-1.2); Total Protein 5.7 g/dL (6.6-8.7)
[2022-05-26] MEDS: piperacillin-tazobactam 3.375 GM in sodium chloride 0.9% (plus) 50 ML IV ×2 (09:38→17:08)
[2022-05-26] MEDS: sodium chloride 0.9% 1,000 ML 200 ML IV ×3 (09:39→20:59)
--- NOTE | 2022-05-26 13:00 | P.PN_ITS ---
Subjective Subjective: no acute events overnight. pain slightly improved but not quite medihoney not on formulary. pt will ask a family member to bring it in. Vitals/I&O/Wt Last Vital Signs Temp 98.0 F 05/26/22 12:00 Pulse 71 05/26/22 12:00 Resp 16 05/26/22 12:00 BP 95/59 05/26/22 12:00 Pulse Ox 98 05/26/22 12:00 O2 Del Method 05/26/22 12:00 05/25/22 05/26/22 05/26/22 22:59 06:59 14:59 Intake Total 1120 / 8.333 895 / 895 Balance 1120 / 8.333 895 / 895 Weight last 48 hrs Weight 52.617 kg Physical Exam Const: COMMON NORMALS: patient oriented x3 Resp: COMMON NORMALS: clear to auscultation bilaterally AUSCULTATION: clear to auscultation bilaterally Cardio: COMMON NORMALS: regular rate, regular rhythm, S1 normal heart sound present, S2 normal heart sound present, No gallops present (Cardio), No murmurs present (Cardio), No rub (Cardio) and Peripheral pulses 2+ throughout RATE: regular rate RHYTHM: regular rhythm HEART SOUNDS: S1 normal heart sound pr esent and S2 normal heart sound present PERIPHERAL PULSES: Peripheral pulses 2+ throughout GI: AUSCULTATION: Yes normoactive bowel sounds RECTAL EXAM: Yes deferred OTHER: Epigastric and left upper quadrant tenderness present, minimal guarding, no rebound tenderness. Extremity: COMMON NORMALS: no clubbing, cyanosis or edema (right ankle covered with dressing. ) and no pedal edema Neuro: COMMON NORMALS: patient oriented x3 Data : 05/26/22 04:23 05/26/22 04:23 A&P Assessment and plan (1) Acute pancreatitis: (2) Leukocytosis: Plan 61 year old male with no significant past medical history was brought in with chief complaint of abdominal pain nausea, started today, describes the pain as sharp, predominantly located in Epigastric and left upper and lower abdominal quadrant, with occasional radiation to the back. He also reports constipation for which he took MiraLAX with no improvement. Assessment: Acute pancreatitis: Possibly secondary to alcohol use and smoking, he is not on any offending medication at home,Gallbladder and bile ducts: No wall thickening, pericholecystic fluid or stones. Pancreatic pseudocyst Plan: Continue to keep NPO Pain control IV hydration. Continue normal saline to 200 cc/h Lipid Panel complete HbA1c 5.1 Start clear liquid intake today. Check MR abdomen w/ contrast with pancreatic protocol. Discussed with Dr. Padron blood pressure soft. Will continue IV hydration start zosyn CODE STATUS: Full code DVT prophylaxis: On Lovenox Attestations Medical Necessity Statement*: Patient is to be in hospital management of acute pancreatitis. Anticipated length of stay greater than 2 midnights. Time Spent in Patient Care: Greater than 35 minutes (>than 50% of time spent in counselling and/or direct pt care on unit) . Coding Level of Care Code Acute Supervisor [employer]working for Lillian Banuelos Diagnoses Acute pancreatitis K85.90 Leukocytosis D72.829
--- NOTE | 2022-05-26 13:43 | MRR_ITS ---
PROCEDURE INFORMATION: Exam: MR Abdomen Without and With Contrast Exam date and time: 05/26/2022 4:12 PM Age: 61 years old Clinical indication: Abdominal pain; Localized; Patient HX: Patient has pain left side of umbilical area x 2 days; Additional info: Pancreatic protocol, complex fluid collection at head of pancreas TECHNIQUE: Imaging protocol: Magnetic resonance imaging of the abdomen without and with contrast. Contrast material: MULTIHANCE; Contrast volume: 11 ml; Contrast route: INTRAVENOUS (IV); COMPARISON: CT abdomen pelvis w con* [id number] 05/24/2022 7:13 PM FINDINGS: Liver: No mass. Gallbladder and bile ducts: Unremarkable. No stones. No ductal dilation. Pancreas: There are a few cystic lesions in the pancreatic head and neck with the smallest lesion measuring 2.5 cm in size and the largest measuring up to 4 cm in size. The largest lesion has a few thin internal septations. No abnormal nodular/masslike enhancement within the lesions. There does appear to be communication with the main pancreatic duct and side branches. There is also irregular dilation of the main pancreatic duct most prominent at the neck measuring up to 8 mm in size. Spleen: Unremarkable. No splenomegaly. Adrenal glands: Unremarkable. No mass. Kidneys and ureters: A few scattered subcentimeter simple cysts are noted in the left kidney. No solid mass. No hydronephrosis. Stomach and bowel: Visualized stomach and intestines are unremarkable. Intraperitoneal space: No free fluid. Vasculature: No abdominal aortic aneurysm. Bones/joints: Unremarkable. Soft tissues: Unremarkable. MR/MR abdomen wo/w con* [id number] IMPRESSION: A few cystic lesions noted in the pancreatic head and neck ranging in size from 2.5 cm up to 4 cm. There appears to be communication with the main pancreatic duct and side branches, with irregular dilation of the main pancreatic duct up to 8 mm in the neck. While this could reflect sequela of pancreatitis/pseudocysts, given the lack of calcifications on CT, IPMNs are felt more likely. Given the high risk imaging features and size, would recommend EUS/FNA and surgical consultation. COMMENTS: Consistent with the [employer]'s Incidental Findings Committee white paper (J Am [employer]iol 2018): Any incidental renal lesion less than 1 cm or classified as too small to characterize, or any incidental cystic renal lesion characterized as simple-appearing, is likely benign. No follow-up imaging is recommended for these lesions per consensus recommendations based on imaging criteria.
[2022-05-26 14:33] LABS: Lipase 2866 U/L (13-60)
[2022-05-26 15:29] LABS: Lactic Sepsis W/Reflex 0.9 mmol/L (0.5-2.2)
[2022-05-26] MEDS: gadobenate dimeglumine 20 mL vial IV (16:51)
[2022-05-26] MEDS: enoxaparin 40 mg/0.4 mL Syringe SUBCUT (20:59)
[2022-05-27] MEDS: piperacillin-tazobactam 3.375 GM in sodium chloride 0.9% (plus) 50 ML IV ×2 (00:39→09:08)
[2022-05-27] MEDS: sodium chloride 0.9% 1,000 ML 200 ML IV ×4 (01:38→15:33)
[2022-05-27 04:00] VITALS: BP 110/67; PULSE 62; RESP 16; TEMP 36.8; O2SAT 98
[2022-05-27 05:22] LABS: Basophils % 0.4 %; Eosinophils # 0.1 10^3/uL (0.0-0.8); Eosinophils % 0.5 %; Hemoglobin 13.9 g/dL (11.7-16.6); Lymphocytes # 1.6 10^3/uL (0.8-4.8); Lymphocytes % 17.2 %; Mean Corpuscular HGB Conc 33.1 g/dL (30.0-36.0); Mean Corpuscular Hemoglobin 30.5 pg (28.0-34.0); Mean Corpuscular Volume 92.3 fl (80-94); Mean Platelet Volume 9.8 fL (7.4-10.4); Monocytes # 0.9 10^3/uL (0.2-0.9); Monocytes % 9.6 %; Neutrophils # 6.59 10^3/uL (1.8-7.7); Neutrophils % 72.1 %; Nucleated Red Blood Cells % 0 %; Platelet Count 271 10^3/cmm (130-400); Red Blood Count 4.55 10^6/uL (4.1-5.3); Red Cell Distribution Width 14.6 % (12.1-15.1); White Blood Count 9.2 10^3/uL (4.0-10.0)
[2022-05-27 06:05] LABS: Alanine Aminotransferase < 5 U/L (0-41); Albumin Level 2.7 g/dL (3.5-5.2); Alkaline Phosphatase 52 U/L (40-130); Anion Gap 13.8 (5-19); Aspartate Amino Transferase 9 U/L (0-40); Blood Urea Nitrogen 4 mg/dL (8-23); Calcium 8.4 mg/dL (8.5-10.5); Carbon Dioxide 20 mmol/L (22-29); Chloride 106 mmol/L (98-107); Globulin 2.8 g/dL (1.3-4.6); Glomerular Filtration Rate 137.4 mL/min (90-130); Glucose 83 mg/dL (65-115); Osmolality Calculated 278 mOsm/kg (285-295); Potassium 3.8 mmol/L (3.5-5.1); Sodium 136 mmol/L (136-145); Total Bilirubin 0.7 mg/dL (0.15-1.2); Total Protein 5.5 g/dL (6.6-8.7)
[2022-05-27 07:57] VITALS: BP 93/55; PULSE 58; RESP 12; TEMP 37; O2SAT 95
--- NOTE | 2022-05-27 09:03 | P.PN_ITS ---
Vitals/I&O/Wt Last Vital Signs Temp 98.6 F 05/27/22 07:57 Pulse 58 L 05/27/22 07:57 Resp 12 05/27/22 07:57 BP 93/55 05/27/22 07:57 Pulse Ox 95 05/27/22 07:57 O2 Del Method 05/27/22 07:57 05/26/22 05/27/22 05/27/22 22:59 06:59 14:59 Intake Total 1050 / 2995 1905 / 4900 Output Total 1050 / 1050 Balance 1050 / 2995 855 / 3850 Weight last 48 hrs Weight 52.617 kg Data : 05/27/22 04:25 05/27/22 04:25 Micro: Microbiology 05/26/22 14:52 Blood Culture - Preliminary Blood SPECIMEN COLLECTED 05/26/22 14:49 Blood Culture - Preliminary Blood SPECIMEN COLLECTED Coding Level of Care Code Acute Water Taxi Ferry Operator for Lillian Banuelos
--- NOTE | 2022-05-27 09:14 | PM.CONSULT ---
Providers/Reason For Consult Consulting Physician/Specialty*: Dr. Twan Padron DO/General surgery Reason for Consult*: Pancreatitis Attending Physician: Savanna Braxton MD Primary Care Provider: Darrin Barker DO History of Present Illness History of Present Illness Jose Mendoza is a 61 year old male, who is an alcoholic, who presents to the hospital with a 2-day history of periumbilical abdominal pain. He does report some nausea but denies any emesis. Denies any diarrhea/constipation and/or fever/chills. Initial work-up was consistent with pancreatitis. CT showed cystic changes in the head of the pancreas. MRI was consistent with IPMN and recommended EUS with FNA. Patient reports that his pain is periumbilical, dull and constant. The pain does not radiate. Palpation and eating makes the pain worse. Nothing makes pain better. Review of Systems General: Reports: 10 or more systems reviewed and unremarkable except in HPI and below Medications/Allergies Home Medications Medication Instructions Recorded Confirmed Last Taken Type ibuprofen 200 mg tablet (Advil) 200 mg PO Q8H PRN Pain 08/30/20 05/25/22 11/05/20 History naproxen 500 mg tablet 500 mg PO BID PRN Pain 05/25/22 05/25/22 Unknown History psyllium husk 0.4 gram capsule 0.4 g PO DAILY 05/25/22 05/25/22 Unknown History (Metamucil) Allergies Allergy/AdvReac Type Severity Reaction Status Date / Time codeine Allergy ADR-Nausea Verified 05/25/22 08:03 Current Medications Generic Name Dose Route Start Last Admin Trade Name Freq PRN Reason Stop Dose Admin Acetaminophen 650 mg 05/24/22 20:47 05/25/22 11:26 Acetaminophen 325 Mg Tablet PO 650 mg Q6H PRN Administration Mild/Mod Pain Or Temp >/= 101 Enoxaparin Sodium 40 mg 05/24/22 21:00 05/26/22 20:59 Enoxaparin 40 Mg/0.4 Ml Syringe SUBCUT 40 mg Q24H JENNIE Administration Sodium Chloride 1,000 mls @ 200 mls/hr 05/24/22 21:00 05/27/22 09:10 Sodium Chloride 0.9% IV 200 mls/hr .Q5H JENNIE Administration Piperacillin Sod/Tazobactam 50 mls @ 12.5 mls/hr 05/26/22 09:00 05/27/22 09:08 Sod 3.375 gm/ Sodium Chloride IV 12.5 mls/hr Q8H JENNIE Administration Protocol PFSH Acute PFSH: Medical History Polycythemia Social History Smoking and tobacco status: current every day smoker cigarettes Alcohol intake: current Alcohol intake frequency: few times a week Alcohol type: beer History of recent travel: No Vitals/I&O/Wt Last Vital Signs Temp 98.6 F 05/27/22 07:57 Pulse 58 L 05/27/22 07:57 Resp 12 05/27/22 07:57 BP 93/55 05/27/22 07:57 Pulse Ox 95 05/27/22 07:57 O2 Del Method 05/27/22 07:57 05/26/22 05/27/22 05/27/22 22:59 06:59 14:59 Intake Total 1050 / 2995 1905 / 4900 530 / 530 Output Total 1050 / 1050 Balance 1050 / 2995 855 / 3850 530 / 530 Weight last 48 hrs Weight 116 lb Physical Exam Narrative: General : Patient is well developed , no acute distress, oriented x3 Head : Normal cephalic, a-traumatic. Ears : Pinnae and external canal are normal. Hearing is normal. Eyes : PERRLA, Sclera and injection are normal. No conjunctival discharge. Nose : Mucous membranes are without erythema. Throat : buccal mucosa is normal, gums are without significant recession or hypertrophy. Lungs : Equal chest rise bilaterally, no use of accessory muscles, trachea is midline. Cor : Rate and rhythm are normal. Abdomen : Soft, ND, mild periumbilical tenderness, no g/r/m Extremities : No edema, no cyanosis or clubbing, dorsalis pedis pulses are present bilaterally, non-tender to palpation of calves. Upper extremities are normal bilaterally. Back : non-tender to palpation, no CVA tenderness. Neuro : CN II - XII intact, Upper and lower extremities have equal and full strength Data : 05/27/22 04:25 05/27/22 04:25 Micro: Microbiology 05/26/22 14:52 Blood Culture - Preliminary Blood SPECIMEN COLLECTED 05/26/22 14:49 Blood Culture - Preliminary Blood SPECIMEN COLLECTED A&P Assessment and plan (1) Acute pancreatitis: Possible IPM then at the pancreas Plan N.p.o. IV fluids Recommend transfer to facility with EUS and FNA capabilities, as per MRI recommendations No acute general surgery intervention Coding Level of Care Code Acute Golf Stud Riveter for Janag Fwd Diagnoses Acute pancreatitis K85.90
[2022-05-27 09:42] VITALS: PULSE 64; O2SAT 98
[2022-05-27 11:52] VITALS: BP 102/60; PULSE 63; RESP 18; TEMP 36.8; O2SAT 97
--- NOTE | 2022-05-27 13:23 | P.TS_ITS ---
Transfer Summary Providers Date of Admission: 05/24/22 20:23 Date of Discharge/Transfer: 05/27/22 Attending Provider at Admission: Raj Chaves MD Attending Provider at Transfer: Savanna Braxton MD Primary Care Provider: Darrin Barker DO Transfer Plans: Anticipated date of transfer: 05/27/22 . Additional transfer facility information: [facility] Dr. Robertson (Hospitalist. ). Diagnoses at Discharge Discharge Diagnosis (1) Acute pancreatitis: Status: Acute Reason for Visit Reason for Visit ABD Pain Brief History: As per Dr. Chaves Jose Mendoza is a 61 year old male with no significant past medical history was brought in with chief complaint of abdominal pain nausea, started today, describes the pain as sharp, predominantly located in Epigastric and left upper and lower abdominal quadrant, with occasional radiation to the back.? He also reports constipation for which he took MiraLAX with no improvement. He also reports subjective fever at home, denied any vomiting , chest pain , shortness of breath. Patient reports drinking beer at home around 2-4 beers a day, as well as he also takes whiskey.Denies any IV drug use.Patient also reports history of smoking. Upon arrival in the ER he was worked up for above-mentioned complaint. Pertinent imaging studies; CT abdomen pelvis w con: 2.8 by 5.3 x 3 cm multilobulated fluid collection in the head of the pancreas resulting in pancreatic ductal dilation. Finding may be secondary to a pseudocyst, if there is a history of pancreatitis. Pertinent labs: WBC 14.7 , H&H: 16/48 , PLT : 355 , serum sodium 135 serum potassium 3.8, BUN serum creatinine 6/0.7 , AST ALT alk phos normal: Lipase 6445 Rapid COVID-negative. Hospital Course Hospital Course Patient was admitted for acute pancreatitis. CT abdomen pelvis on admission showed 2.8 by 5.3 x 3 cm multilobulated fluid collection in the head of the pancreas resulting in pancreatic ductal dilation. Finding may be secondary to a pseudocyst. However MRI with contrast abdomen is recommended at this time for further evaluation. Patient was kept on IV fluids 200 cc/h normal saline. He continued to complain of epigastric pain however is slightly better today. Started on a trial of clear liquids today. MRI abdomen with contrast showed A few cystic lesions noted in the pancreatic head and neck ranging in size from 2.5 cm up to 4 cm. There appears to be communication with the main pancreatic duct and side branches, with irregular dilation of the main pancreatic duct up to 8 mm in the neck. While this could reflect sequela of pancreatitis/pseudocysts, given the lack of calcifications on CT, IPMNs are felt more likely. Given the high risk imaging features and size, would recommend EUS/FNA and surgical consultation. Surgical consultation was obtained.MRI was consistent with IPMN and recommended EUS with FNA.? General surgery recommended transfer to facility with EUS and FNA Abilities as per MRI recommendations. No acute general surgery intervention at this time. Case discussed with [facility] who has gastroenterology services and ERCP capabilities. Discussed case with hospitalist there who generously accepted patient for transfer. Patient will be sent in stable condition. Physical Exam Narrative: General : Patient is well developed , no acute distress, oriented x3, temporal wasting Nose : Mucous membranes are without erythema. Throat : buccal mucosa is normal, moist mucosa Lungs : Equal chest rise bilaterally, no use of accessory muscles, trachea is midline., clear to ausculation bilaterally Cor : Rate and rhythm are normal. Abdomen : Soft, ND, mild periumbilical tenderness, no g/r/m Extremities : No edema, no cyanosis or clubbing, Back : non-tender to palpation, no CVA tenderness. Neuro :non-focal TS Data Studies Completed and Pending Pending at discharge Category Date Time Status Blood Culture Stat Lab 05/26/22 14:52 Results Sputum Culture and Gram Stain Stat Lab 05/26/22 13:35 Uncollected Labs from last 24 hours 05/27/22 05/27/22 05/26/22 04:25 04:25 14:52 WBC 9.2 RBC 4.55 Hgb 13.9 Hct 42.0 MCV 92.3 MCH 30.5 MCHC 33.1 RDW 14.6 Plt Count 271 MPV 9.8 Neut % (Auto) 72.1 Lymph % (Auto) 17.2 Twiggs % (Auto) 9.6 Eos % (Auto) 0.5 Baso % (Auto) 0.4 Neut # (Auto) 6.59 Lymph # (Auto) 1.6 Twiggs # (Auto) 0.9 Eos # (Auto) 0.1 Baso # (Auto) 0.0 Nucleated RBC % (auto) 0 Nucleated RBCs # 0.0 Sodium 136 Potassium 3.8 Chloride 106 Carbon Dioxide 20 L Anion Gap 13.8 BUN 4 L Creatinine 0.6 L GFR Calculation 137.4 H Glucose 83 Calculated Osmolality 278 L Lactic Acid 0.9 Calcium 8.4 L Total Bilirubin 0.7 AST 9 ALT < 5 Alkaline Phosphatase 52 Total Protein 5.5 L Albumin 2.7 L Globulin 2.8 Lipase 05/26/22 04:23 WBC RBC Hgb Hct MCV MCH MCHC RDW Plt Count MPV Neut % (Auto) Lymph % (Auto) Twiggs % (Auto) Eos % (Auto) Baso % (Auto) Neut # (Auto) Lymph # (Auto) Twiggs # (Auto) Eos # (Auto) Baso # (Auto) Nucleated RBC % (auto) Nucleated RBCs # Sodium Potassium Chloride Carbon Dioxide Anion Gap BUN Creatinine GFR Calculation Glucose Calculated Osmolality Lactic Acid Calcium Total Bilirubin AST ALT Alkaline Phosphatase Total Protein Albumin Globulin Lipase 2866 H Completed Studies During Hospitalization Category Date Time Status CT abdomen pelvis w con* [id number] Stat Cat Scan 05/24/22 18:10 Completed MR abdomen wo/w con* [id number] Stat MRI 05/26/22 13:43 Completed Laboratory Last Values WBC 9.2 10^3/uL (4.0-10.0) 05/27/22 04:25 RBC 4.55 10^6/uL (4.1-5.3) 05/27/22 04:25 Hgb 13.9 g/dL (11.7-16.6) 05/27/22 04:25 Hct 42.0 % (42.0-52.0) 05/27/22 04:25 MCV 92.3 fl (80-94) 05/27/22 04:25 MCH 30.5 pg (28.0-34.0) 05/27/22 04:25 MCHC 33.1 g/dL (30.0-36.0) 05/27/22 04:25 RDW 14.6 % (12.1-15.1) 05/27/22 04:25 Plt Count 271 10^3/cmm (130-400) 05/27/22 04:25 MPV 9.8 fL (7.4-10.4) 05/27/22 04:25 Neut % (Auto) 72.1 % 05/27/22 04:25 Lymph % (Auto) 17.2 % 05/27/22 04:25 Twiggs % (Auto) 9.6 % 05/27/22 04:25 Eos % (Auto) 0.5 % 05/27/22 04:25 Baso % (Auto) 0.4 % 05/27/22 04:25 Neut # (Auto) 6.59 10^3/uL (1.8-7.7) 05/27/22 04:25 Lymph # (Auto) 1.6 10^3/uL (0.8-4.8) 05/27/22 04:25 Twiggs # (Auto) 0.9 10^3/uL (0.2-0.9) 05/27/22 04:25 Eos # (Auto) 0.1 10^3/uL (0.0-0.8) 05/27/22 04:25 Baso # (Auto) 0.0 10^3/uL (0.0-0.1) 05/27/22 04:25 Nucleated RBC % (auto) 0 % 05/27/22 04:25 Nucleated RBCs # 0.0 /100WBC 05/27/22 04:25 Sodium 136 mmol/L (136-145) 05/27/22 04:25 Potassium 3.8 mmol/L (3.5-5.1) 05/27/22 04:25 Chloride 106 mmol/L (98-107) 05/27/22 04:25 Carbon Dioxide 20 mmol/L (22-29) L 05/27/22 04:25 Anion Gap 13.8 (5-19) 05/27/22 04:25 BUN 4 mg/dL (8-23) L 05/27/22 04:25 Creatinine 0.6 mg/dL (0.7-1.2) L 05/27/22 04:25 GFR Calculation 137.4 mL/min (90-130) H 05/27/22 04:25 Glucose 83 mg/dL (65-115) 05/27/22 04:25 Estimat Average Glucose 100 05/25/22 04:35 Hemoglobin A1c 5.1 % (4.0-6.0) 05/25/22 04:35 Calculated Osmolality 278 mOsm/kg (285-295) L 05/27/22 04:25 Lactic Acid 0.9 mmol/L (0.5-2.2) 05/26/22 14:52 Calcium 8.4 mg/dL (8.5-10.5) L 05/27/22 04:25 Phosphorus 2.9 mg/dL (2.5-4.5) 05/25/22 04:35 Magnesium 2.0 mg/dL (1.7-2.3) 05/25/22 04:35 Total Bilirubin 0.7 mg/dL (0.15-1.2) 05/27/22 04:25 AST 9 U/L (0-40) 05/27/22 04:25 ALT < 5 U/L (0-41) 05/27/22 04:25 Alkaline Phosphatase 52 U/L (40-130) 05/27/22 04:25 Total Protein 5.5 g/dL (6.6-8.7) L 05/27/22 04:25 Albumin 2.7 g/dL (3.5-5.2) L 05/27/22 04:25 Globulin 2.8 g/dL (1.3-4.6) 05/27/22 04:25 Triglycerides 94 mg/dL (0-150) 05/25/22 04:35 Cholesterol 102 mg/dL (0-200) 05/25/22 04:35 LDL Cholesterol, Calc 40 mg/dL (50-129) L 05/25/22 04:35 HDL Cholesterol 43 mg/dL (60-100) L 05/25/22 04:35 LDL/HDL Ratio 0.93 RATIO (0.00-3.22) 05/25/22 04:35 Cholesterol/HDL Ratio 2.37 mg/dL (1.0-5.00) 05/25/22 04:35 Lipase 2866 U/L (13-60) H 05/26/22 04:23 Urine Color Yellow (Yellow) 05/24/22 18:56 Urine Appearance Clear (CLEAR) 05/24/22 18:56 Urine pH 8.5 (5-7) A 05/24/22 18:56 Ur Specific [employer] 1.015 (1.005-1.030) 05/24/22 18:56 Urine Protein Negative 05/24/22 18:56 Urine Glucose (UA) Negative (Normal) 05/24/22 18:56 Urine Ketones Trace (Negative) A 05/24/22 18:56 Urine Blood Negative (Negative) 05/24/22 18:56 Urine Nitrate Negative 05/24/22 18:56 Urine Bilirubin Negative (Negative) 05/24/22 18:56 Urine Urobilinogen 0.2 mg/dL (Negative) 05/24/22 18:56 Ur Leukocyte Esterase Negative (Negative) 05/24/22 18:56 SARS-CoV-2 Ag (Rapid) Negative (Negative) 05/24/22 18:45 Radiology Impressions Abdomen/Pelvis CT 05/24/22 18:10 IMPRESSION: 1. 2.8 by 5.3 x 3 cm multilobulated fluid collection in the head of the pancreas resulting in pancreatic ductal dilation. Finding may be secondary to a pseudocyst, if there is a history of pancreatitis. Evaluation with nonemergent outpatient contrast enhanced MRI of the abdomen is recommended. 2. There are few loops of mildly prominent small bowel , nonspecific but may be seen with gastroenteritis. 3. Mild constipation. COMMENTS: Consistent with the [employer]'s Incidental Findings Committee white paper (J Am [employer] Radiol 2018): Any incidental renal lesion less than 1 cm or classified as too small to characterize, or any incidental cystic renal lesion characterized as simple-appearing, is likely benign. No follow-up imaging is recommended for these lesions per consensus recommendations based on imaging criteria. Abdomen MRI 05/26/22 13:43 IMPRESSION: A few cystic lesions noted in the pancreatic head and neck ranging in size from 2.5 cm up to 4 cm. There appears to be communication with the main pancreatic duct and side branches, with irregular dilation of the main pancreatic duct up to 8 mm in the neck. While this could reflect sequela of pancreatitis/pseudocysts, given the lack of calcifications on CT, IPMNs are felt more likely. Given the high risk imaging features and size, would recommend EUS/FNA and surgical consultation. COMMENTS: Consistent with the [employer]'s Incidental Findings Committee white paper ([employer]iol 2018): Any incidental renal lesion less than 1 cm or classified as too small to characterize, or any incidental cystic renal lesion characterized as simple-appearing, is likely benign. No follow-up imaging is recommended for these lesions per consensus recommendations based on imaging criteria. Recent Clincial Data Last Vital Signs Temp 98.3 F 05/27/22 11:52 Pulse 63 05/27/22 11:52 Resp 18 05/27/22 11:52 BP 102/60 05/27/22 11:52 Pulse Ox 97 05/27/22 11:52 O2 Del Method 05/27/22 11:52 Vital Signs Temp Pulse Resp BP Pulse Ox O2 Del Method O2 Del Method 05/27/22 11:52 98.3 F 63 18 102/60 97 Room Air 05/27/22 09:42 64 98 Room Air 05/27/22 07:57 98.6 F 58 L 12 93/55 95 Room Air 05/27/22 04:00 98.2 F 62 16 110/67 98 Intake & Output/Weight 05/25/22 05/26/22 05/27/22 05/28/22 06:59 06:59 06:59 06:59 Intake Total 2098.333 / 2098.333 4900 / 4900 580 / 580 Output Total 1050 / 1050 Balance 2098.333 / 2098.333 3850 / 3850 580 / 580 Weight 52.617 kg Vitals Last Vital Signs Temp 98.3 F 05/27/22 11:52 Pulse 63 05/27/22 11:52 Resp 18 05/27/22 11:52 BP 102/60 05/27/22 11:52 Pulse Ox 97 05/27/22 11:52 O2 Del Method 05/27/22 11:52 TS Medications Medications Acetaminophen (Acetaminophen 325 Mg Tablet) 650 mg PO Q6H PRN PRN Reason: Mild/Mod Pain Or Temp >/= 101 Last Admin: 05/25/22 11:26 Dose: 650 mg Bisacodyl (Bisacodyl 5 Mg Tablet) 10 mg PO DAILY PRN; Protocol PRN Reason: Constipation (see protocol) Enoxaparin Sodium (Enoxaparin 40 Mg/0.4 Ml Syringe) 40 mg SUBCUT Q24H JENNIE Last Admin: 05/26/22 20:59 Dose: 40 mg Sodium Chloride (Sodium Chloride 0.9%) 1,000 mls @ 200 mls/hr IV .Q5H JENNIE Last Admin: 05/27/22 09:10 Dose: 200 mls/hr Piperacillin Sod/Tazobactam (Sod 3.375 gm/ Sodium Chloride) 50 mls @ 12.5 mls/hr IV Q8H JENNIE; Protocol Last Infusion: 05/27/22 13:15 Dose: Infused Morphine Sulfate (Morphine 4 Mg/Ml Sdv 1 Ml) 0.5 mg IVP Q4H PRN PRN Reason: SEVERE PAIN Naloxone HCl (Naloxone 0.4 Mg/Ml Sdv) 0.1 mg IVP Q2M PRN PRN Reason: OPIATERV Ondansetron HCl (Ondansetron 2 Mg/Ml Sdv 2 Ml) 4 mg IVP Q8H PRN PRN Reason: vomiting, or N/V if npo Discontinued Medications Hydromorphone HCl (Hydromorphone 1 Mg/Ml Inj 1 Ml) 0.5 mg IVP ONCE ONE Stop: 05/24/22 18:11 Last Admin: 05/24/22 18:30 Dose: 0.5 mg Iohexol (Iohexol 350 Mg/Ml 100 Ml Btl) 0 ml IV ONCE ONE Stop: 05/24/22 19:13 Last Admin: 05/24/22 19:13 Dose: 80 ml Morphine Sulfate (Morphine 4 Mg/Ml Sdv 1 Ml) 2 mg IVP Q4H PRN PRN Reason: SEVERE PAIN Last Admin: 05/26/22 10:03 Dose: 2 mg Morphine Sulfate (Morphine 4 Mg/Ml Sdv 1 Ml) 1 mg IVP Q4H PRN PRN Reason: SEVERE PAIN Ondansetron HCl (Ondansetron 2 Mg/Ml Sdv 2 Ml) 4 mg IVP ONCE ONE Stop: 05/24/22 18:11 Last Admin: 05/24/22 18:27 Dose: 4 mg Allergies codeine Allergy (Verified 05/25/22 08:03) ADR-Nausea Home Medications ibuprofen 200 mg tablet (Advil) 200 mg PO Q8H PRN Pain 08/30/20 [History Confirmed 05/25/22] naproxen 500 mg tablet 500 mg PO BID PRN Pain 05/25/22 [History Confirmed 05/25/22] psyllium husk 0.4 gram capsule (Metamucil) 0.4 g PO DAILY 05/25/22 [History Confirmed 05/25/22] Discharge Plan Discharge Patient Disposition: Home Condition: Stable Prescriptions: No Action ibuprofen [Advil] 200 mg tablet 200 mg PO Q8H PRN (Reason: Pain) naproxen 500 mg tablet 500 mg PO BID PRN (Reason: Pain) Metamucil 0.4 gram Capsule 0.4 g PO DAILY Referrals: Darrin Barker DO [Primary Care Provider] - Patient Instructions: Opioid Safety Transfer Attestations Time Spent in Transfer Care: greater than 30 min Quality Metrics Clinical Quality Measures [ No reported AMI, CVA or VTE this stay] Coding Level of Care Code Acute [employer] for Lillian Fwd Diagnoses Acute pancreatitis K85.90
--- NOTE | 2022-05-27 14:23 | PC.NURSE ---
Pt notified of transport location. report called to aneesh holden at [facility]. claudia Little's sister called and notified of transfer, information given of location address, phone number, room number, accepting physicians name, and nurse.
[2022-05-27 15:41] VITALS: BP 103/65; PULSE 64; RESP 18; TEMP 36.7; O2SAT 98
[2022-05-27 16:18] VITALS: BP 103/65; PULSE 64; RESP 18; TEMP 36.7; O2SAT 98
== END 2022-05-27 16:20 | disposition short-term general hospital (02) | DRG 440 ==
LOC: ER 18:41 → MEDSURG 20:46
PROVIDERS: Admitting Provider Internal Medicine; Emergency Provider Emergency Medicine; PCP Family Medicine; Visit Provider Internal Medicine
DX: K85.20 Alcohol induced acute pancreatitis without necrosis or infection (principal); D13.6 Benign neoplasm of pancreas; F10.20 Alcohol dependence, uncomplicated; K59.00 Constipation, unspecified; D75.1 Secondary polycythemia; D72.829 Elevated white blood cell count, unspecified; F17.210 Nicotine dependence, cigarettes, uncomplicated; S91.031D Puncture wound without foreign body, right ankle, subsequent encounter; W20.8XXD Other cause of strike by thrown, projected or falling object, subsequent encounter
CPT/HCPCS: 36415; 74177; 74183; 80053; 80061; 81003; 83036; 83605; 83690; 83735; 84100; 85025; 87040; 87426; 96372; 96374; 96375; 99285; A9577; J1170; J1650; J2270; J2405; J2543; J7030; Q9967

== ENCOUNTER → 2022-10-19 11:59 | Outpatient (BNVA) | payer OTHER, SELFPAY | PROVIDERS: PCP Family Medicine; Visit Provider Nurse Practitioner Family | DX: M89.312 Hypertrophy of bone, left shoulder (principal) | CPT/HCPCS: 73000 ==

== ENCOUNTER 2022-11-09 10:36 | Outpatient (CLI) | payer OTHER, SELFPAY ==
--- NOTE | 2022-11-09 10:45 | CT_ITS ---
WS: [id number] LDCT LUNG CANCER SCREENING TECHNIQUE: Noncontrast CT of the chest with coronal and sagittal reformatted images. CLINICAL INFORMATION: F17.210 - Nicotine dependence, cigarettes, uncomplicated COMPARISON: CT abdomen pelvis May 24, 2022 DLP: 88.78 mGy.cm DIvol: Mean CTDIvol: 1.60 (mGy) All CT scans at [facility] use at least one of these dose optimization techniques: automat ed exposure control; mA and/or kV adjustment per patient size (includes targeted exams where dose is matched to clinical indication); or iterative reconstruction. FINDINGS:Small opacity RIGHT upper lobe measuring 4 mm. RIGHT lower lobe nodule measuring 3.5 mm. Tin y noncalcified nodule LEFT upper lobe. Calcified granuloma LEFT lower lobe. Normal caliber thoracic aorta. No mediastinal or hilar lymphadenopathy. No axillary lymphadenopathy. Small esophageal hiatal hernia. Cholecystectomy clips. Partially visualized hepatomegaly. Adrenal gla nds are normal. Splenic granulomas. Several cystic appearing lesions partially visualized pancreas appears similar to the prior CT Septem [address]/CT lung screening [id number] IMPRESSION: LUNG-RADS: 2-Benign Appearance or Behavior FOLLOW UP: 12 Month: Continue annual screening with LDCT
== END 2022-11-09 10:37 | disposition home or self-care (01) ==
LOC: RAD 10:39
PROVIDERS: PCP Family Medicine; Visit Provider Nurse Practitioner Family
DX: Z12.2 Encounter for screening for malignant neoplasm of respiratory organs (principal); F17.210 Nicotine dependence, cigarettes, uncomplicated
CPT/HCPCS: 71271

== ENCOUNTER 2023-01-08 09:33 | Outpatient (CLI) | payer OTHER, SELFPAY ==
--- NOTE | 2023-01-08 09:30 | MR_ITS ---
WS: [id number] INDICATION: Knot LEFT AC joint. TECHNIQUE: Axial T1, axial T2, coronal T1, coronal STIR, sagittal T1, sagittal T2, coronal 3-D STIR, coronal T1 fat sat. FINDINGS: Due to the palpable marker noted is a heterogeneous mass or lesion. Palpable marker overlyi ng the sternoclavicular joint is small amount of underlying fluid in the joint. Associated edema in t he distal clavicle and manubrium likely degenerative or reactive. No drainable fluid collections. No definite fractures. Findings likely due to sternoclavicular joint synovitis. RIGHT sternoclavicular joint appears normal. Normal thyroid. Normal thoracic inlet. MR/MR chest wo con [id number] IMPRESSION: 1. Small amount of fluid and edema in the sternoclavicular joint deep to the p alpable marker. Associated edema in the underlying distal clavicle and manubriu m likely degenerative or reactive. Findings likely due synovitis, likely degene rative or inflammatory 2. No evidence of underlying mass or lesion in this location. No evidence of o steomyelitis.
== END 2023-01-08 09:34 | disposition home or self-care (01) ==
PROVIDERS: PCP Family Medicine; Visit Provider Student in an Organized Health Care Education/Training Program
DX: M89.319 Hypertrophy of bone, unspecified shoulder (principal)
CPT/HCPCS: 71550

== ENCOUNTER 2023-01-15 08:25 | Outpatient (CLI) | payer OTHER, SELFPAY ==
--- NOTE | 2023-01-15 08:38 | MR_ITS ---
WS: [id number] MRI ABDOMEN with and without CONTRAST. COMPARISON: 05/26/[address] 05/24/2022 Multiplanar, multisequence imaging is performed with and without contrast. MultiHance 12 mL. Pancreas: Pancreas is mildly prominent with a dilated duct measuring up to 6 mm. No mass at the pancreatic head. Common bile duct is normal size for prior cholecystectomy. There is a cystic mass without enhancement at the pancreatic head extending into the uncinate process. Mass christian sures 3.7 x 3.2 cm. Mass displaces the common bile duct to the RIGHT but this is not causing signific ant dilatation. Additional cystic masses were also evident within the pancreas on prior CT and MRI. T hese additional masses have resolved. This suggests these may have been pseudocysts that have resolve d. There is no solid mass. Normal appearance of the liver. Normal spleen. No adrenal mass. Normal size kidneys. 8 mm cyst upper pole LEFT kidney. There are a few additional small cysts. No solid mass. No ascites or adenopathy. Jade ng bases are clear. MR/MR abdomen wo/w con* [id number] IMPRESSION: 1. Cystic mass centered at the pancreatic head into the uncinate process measu res 3.7 x 3.2 cm and is similar in size compared to the prior studies. No enhan cement or solid component. Differential includes pseudocyst versus IPMN. Sugges t 6-12 month follow-up MRI pancreas with and without contrast protocol to docum ent long-term stability. 2. Additional cystic masses within the pancreas have resolved. 3. Pancreatic duct remains dilated but no mass or obstruction at the pancreati c head. 4. Prior cholecystectomy. 5. Common bile duct is not significantly dilated. Duct is displaced by the nguyen creatic head cyst.
[2023-01-15] MEDS: gadobenate dimeglumine 20 mL vial IV (10:01)
== END 2023-01-15 08:26 | disposition home or self-care (01) ==
LOC: RAD 08:29
PROVIDERS: PCP Family Medicine; Visit Provider Internal Medicine
DX: K86.2 Cyst of pancreas (principal); Z90.49 Acquired absence of other specified parts of digestive tract
CPT/HCPCS: 74183; A9577

== ENCOUNTER 2023-05-06 10:43 | Outpatient (CLI) | payer MEDICARE, OTHER, SELFPAY ==
--- NOTE | 2023-05-06 11:18 | US_ITS ---
WS: [id number] ULTRASOUND SOFT TISSUES RIGHT sternoclavicular region. HISTORY: LOCALIZED SWELLING,MASS LUMP, MULTIPLE SITES COMPARISON: Prior chest CT 11/09/2022 and MRI chest 01/08/2023 TECHNIQUE: 2-D and color Doppler imaging is submitted. There is mildly prominent soft tissue at the region of the sternoclavicular joint. Soft tissue thicke derik measures 1.6 x 0.8 cm. No increased vascularity and no adjacent fluid. Due to its location I nitish pect this is probably an inflammatory response from arthritis. This does not appear masslike. Prior c hest CT and MRI chest were reviewed which demonstrated no abnormality at the time in this location. M ild inflammatory changes were noted at the LEFT SC joint at that time. IMPRESSION: 1. Very mild prominent soft tissue without increased vascularity or fluid at the RIGHT SC joint. This may all be postinflammatory changes from arthropathy. No abnormality was noted at the SC joint on a prior CT from 11/09/2022 or MRI 01/08/2023. If further imaging evaluation is necessary CT SC joint may be of benefit.
== END 2023-05-06 10:44 | disposition home or self-care (01) ==
PROVIDERS: PCP Family Medicine; Visit Provider Nurse Practitioner
DX: R22.2 Localized swelling, mass and lump, trunk (principal)
CPT/HCPCS: 76882

== ENCOUNTER 2023-06-25 14:08 | Outpatient (CLI) | payer MEDICARE, SELFPAY ==
--- NOTE | 2023-06-25 | MR_ITS ---
WS: [id number] MRI ABDOMEN WITH AND WITHOUT CONTRAST. COMPARISON: 01/15/2023, 05/26/[address] 05/24/2022 Multiplanar, multisequence imaging is performed with and without contrast. Previously described cystic mass at the pancreatic head and uncinate process continues to decrease in size. Nonenhancing mass measures 1.2 x 1.2 x 1.5 cm. The previously described pancreatic cystic mass es have resolved. There is no inflammation surrounding the pancreas and no enhancing mass. There is continued dilatatio n of the pancreatic duct throughout its entire course measuring up to 7.6 mm. Normal appearance of the visualized liver. Gallbladder is been surgically removed. Pancreas is normal size. There are 2 cysts within the LEFT kidney with the largest measuring 7 mm. Both of the cysts are in th e upper portion of the kidney. No adrenal mass. No ascites or adenopathy. Normal aorta. IMPRESSION: 1. Continued decrease in size of the nonenhancing cystic mass at the pancreatic head now measuring 1. 2 x 1.5 x 1.5 cm. Additional previously described cysts have resolved. These findings are most consis tent with resolving intrapancreatic pseudocyst. At this time no additional imaging follow-up is thoug ht necessary as there is no enhancing and these masses continue to decrease in size or resolved. 2. Chronic dilatation of the pancreatic duct. 3. Prior cholecystectomy. 4. LEFT renal simple cysts.
[2023-06-25] MEDS: gadobenate dimeglumine 20 mL vial IV (15:51)
== END 2023-06-25 14:09 | disposition home or self-care (01) ==
LOC: RAD 14:08
PROVIDERS: PCP Family Medicine; Visit Provider Nurse Practitioner
DX: K86.2 Cyst of pancreas (principal); K86.89 Other specified diseases of pancreas; Z90.49 Acquired absence of other specified parts of digestive tract
CPT/HCPCS: 74183; A9577